=== PATIENT | female | born 1940 | race Caucasian/White ===

== ENCOUNTER → 2020-01-15 | Outpatient (CLI) | payer OTHER ==
[~2020-01-15] MED LIST: APAP500 PO; CALCIUM 600 +1 EAC1 PO; COLACE100 MG PO; COUMADIN 5 MG TA5 M1 PO; ELEMENTAL CALC600 MG PO; EQL FLAXSEED O1 EACH PO; IRON325 PO; LANOXIN 0.120.125 M1 PO; LIPITOR20 MG PO; MAGNESIUM-ZINC PO; MAGNESIUM500 MG PO; OMEGA 3-6-9 11200 M1 PO; OMEGA-31000 M1 PO; PERCOCET PO; PREDNISONE 20 M20 MG PO; SORINE 80 MG TA80 M1 PO; TUMS PO; VITAMIN A8000 UNI1 PO; VITAMIN B-121000 MCG PO; VITAMIN B-12500 MCG PO; VITAMIN B-6100 MG PO; VITAMIN D1000 UNI1 PO; VITAMIN D32000 UNIT PO; VITAMIN E400 UNIT PO; VITAMIN E600 UNIT PO; VITAMINC500 PO
== END ==
LOC: LAB 10:16
PROVIDERS: ATTEND Internal Medicine Cardiovascular Disease
DX: Z01.812 Encounter for preprocedural laboratory examination (principal); Z11.59 Encounter for screening for other viral diseases

== ENCOUNTER → 2020-01-20 | Outpatient (CLI) | payer OTHER ==
[~2020-01-20] VITALS: Ht 167.6 cm; Wt 61.2 kg
[~2020-01-20] MED LIST changes: +AMIODARONE HCL400 MG PO; +ELIQUIS5 MG PO; +LEVO-T50 MCG PO
--- NOTE | ~2020-01-20 | P ---
[facility] [place] [address] PROCEDURE REPORT Name: STACEY JEFFERSON Room #: REG HOLGER [place].#: [id number] Admission: 01/20/20 Attend Phys: Tim Palacio MD Discharge: Date of : 42 Report #: [id number] THIS REPORT FOR: cc: Zohra Oh MD, Lin W. MD Couchonnal, Luis F. MD ~ CC: Zohra Palacio DATE OF SERVICE: 01/20/2020 CARDIOVERSION PREOPERATIVE DIAGNOSIS: Atrial fibrillation. POSTOPERATIVE DIAGNOSIS: Atrial fibrillation. DESCRIPTION OF PROCEDURE: The patient underwent informed consent. She was prepped and draped in a standard fashion. She was sedated by the Anesthesiology service. Once sedated, she underwent 200 joule synchronized cardioversion with pentecostal of sinus rhythm. There were no procedure related complications. CONCLUSIONS: Successful DC cardioversion with pentecostal of sinus rhythm. By: [id number] Tim Palacio MD /nt
[2020-01-20 07:23] VITALS: BP 117/54
[2020-01-20 07:56] LABS: ABSOLUTE NEUTROPHILS 3.8 thou/uL (1.4-8.2); EOSINOPHILS 7.3 % (0.0-3.0); HEMATOCRIT 34.4 % (37.0-47.0); HEMOGLOBIN 11.6 gm/dL (12.0-15.0); LYMPHOCYTES 15.9 % (24.0-44.0); MCH 30.2 pg (26.0-34.0); MCHC 33.8 g/dL (28.0-37.0); MCV 89.3 fL (80.0-100.0); MONOCYTES 8.6 % (1.0-8.0); PLATELET COUNT 134 thou/uL (150-400); POLYS 67.2 % (36.0-66.0); RBC 3.85 mil/uL (4.20-5.00); RDW 15.3 % (10.5-14.5); WBC 5.6 thou/uL (4.0-11.0)
[2020-01-20 08:06] LABS: PROTIME 10.3 Seconds (9.3-11.4)
[2020-01-20 08:21] LABS: CALCIUM 8.6 mg/dL (8.5-10.1); CREATININE 0.9 mg/dL (0.6-1.0); POTASSIUM 3.5 mmol/L (3.5-5.1)
[2020-01-20 08:26] LABS: ALBUMIN 3.5 g/dL (3.4-5.0); TOTAL BILIRUBIN 0.6 mg/dL (0.2-1.0); TOTAL PROTEIN 6.5 g/dL (6.4-8.2)
--- NOTE | 2020-01-20 08:40 | NUR ---
PT RESTING COMFORTABLY WITH SON AT BEDSIDE. VSS, PT FOLLOWS COMMANDS APPROPRIATELY.
== END | disposition home or self-care (01) ==
LOC: CATH 06:21
PROVIDERS: ATTEND Internal Medicine Cardiovascular Disease
DX: I48.91 Unspecified atrial fibrillation (principal); I42.9 Cardiomyopathy, unspecified; E78.00 Pure hypercholesterolemia, unspecified; J44.9 Chronic obstructive pulmonary disease, unspecified; Z98.890 Other specified postprocedural states; Z79.899 Other long term (current) drug therapy; Z79.01 Long term (current) use of anticoagulants; Z90.710 Acquired absence of both cervix and uterus; Z95.2 Presence of prosthetic heart valve
CPT/HCPCS: 62110; 62900